=== PATIENT | female | born 1960 | race Caucasian/White ===

== ENCOUNTER 2016-08-16 09:14 | Day surgery (SDC) | payer OTHER ==
[2016-08-16] MEDS ORDERED: BACITRACIN IRRIGATION/NS 50,000 UNITS/1,000 ML BTL IRR ONE (09:22)
[2016-08-16] MEDS ORDERED: diphenhydrAMINE 25 MG CAP PO ONE (09:22)
[2016-08-16] MEDS ORDERED: DIAZEPAM 5 MG TAB PO ONE (09:22)
[2016-08-16] MEDS ORDERED: ceFAZolin 2 GM/DEXTROSE 100 ML IV ONE (09:22)
[2016-08-16] MEDS ORDERED: NS 1,000 ML IV ONE (09:22)
--- NOTE | 2016-08-16 09:38 | CPEKG ---
Heart Rate: 66 RR Interval: 909 P-R Interval: 148 QRSD Interval: 84 QT Interval: 396 QTC Interval: 415 P Hubbard: 70 QRS Hubbard: 54 T Wave Hubbard: 28 EKG Severity - BORDERLINE ECG - EKG Impression: SINUS RHYTHM EKG Impression: PROBABLE LEFT ATRIAL ABNORMALITY Electronically Signed By: Nicola Osullivan 17-Aug-2016 10:17:17
[2016-08-16 09:50] LABS: % IMMATURE GRANULYOCYTES 0.4 % (0.0-1.1); ABSOLUTE IMMATURE GRANULOCYTES 0.02 10^3/uL (0.00-0.10); ADD DIFF? NO; ADD MORPH? NO; ADD SCAN? NO; ATYPICAL LYMPHOCYTE FLAG 20 (0-99); FRAGMENT RBC FLAG 0 (0-99); HEMATOCRIT 39.2 % (38.0-47.0); HEMOGLOBIN 13.3 g/dL (12.6-16.3); LEFT SHIFT FLG 0 (0-99); LIPEMIA HEMOLYSIS FLAG 90 (0-99); MEAN CELL HEMOGLOBIN 31.4 pg (27.9-34.1); MEAN CELL HEMOGLOBIN CONCENTR. 33.9 g/dL (32.4-36.7); MEAN CELL VOLUME 92.5 fL (81.5-99.8); MEAN PLATELET VOLUME 10.9 fL (8.7-11.7); PLATELET CLUMPS FLAG 10 (0-99); PLATELET COUNT 198 10^3/uL (150-400); RED BLOOD CELL COUNT 4.24 10^6/uL (4.18-5.33); RED CELL DISTRIBUTION WIDTH 13.5 % (11.5-15.2)
[2016-08-16 09:59] LABS: INR 1.03 (0.83-1.16); PROTIME(PATIENT) 13.4 SEC (12.0-15.0)
[2016-08-16 10:17] LABS: ANION GAP 10 mEq/L (8-16); CALCIUM 9.3 mg/dL (8.5-10.4); CARBON DIOXIDE 23 mEq/l (22-31); CHLORIDE 105 mEq/L (97-110); CREATININE 0.7 mg/dL (0.6-1.0); GLOMERULAR FILTRATION RATE > 60; GLUCOSE 101 mg/dL (70-100); SODIUM 138 mEq/L (134-144)
[2016-08-16] MEDS ORDERED: LIDOCAINE 1% 30 ML SDV ONE (10:42)
[2016-08-16] MEDS ORDERED: fentaNYL 100 MCG/2 ML INJ ONE (10:43)
[2016-08-16] MEDS ORDERED: MIDAZOLAM 2 MG/2 ML VIAL ONE (10:43)
[2016-08-16] MEDS ORDERED: BUPIVACAINE 0.5% 30 ML SDV ONE (10:43)
[2016-08-16] MEDS ORDERED: ATROPINE SULFATE 1 MG/10 ML SYR ONE (11:17)
--- NOTE | 2016-08-16 11:51 | EPPROC ---
Electrophysiology Procedure Note: PROCEDURE PERFORMED: 1. AV Pacemaker generator change INDICATION: Pacemaker generator at [place] Bradycardia PROCEDURE NOTE: Patient presented to the cardiac catheterization laboratory in a fasting, postabsorptive state. EP RN administered sedation. The left infraclavicular area was prepped and draped in the usual sterile fashion. Lidocaine plus bupivacaine was used for local anesthesia. Using a combination of blunt and sharp dissection and electrocautery, the dissection was carried down to the prepectoral fascia and the existing pacemaker pocket was opened. The pacemaker generator was disconnected from the leads and the lead thresholds and impedance were checked. The pacemaker pocket was copiously irrigated with antibiotic solution. The pocket was again inspected for any bleeding. The leads were attached to the pacemaker securely. The pacemaker was inserted into the pocket. During the procedure the patient had a vasovagal response with drop in HR ( ventricular pacing) and SBP to 58 mmHg. Patient awake, alert but felt funny like her usual vasovagal episodes. SBP improved with 300 mL fluid bolus and 0.5 mg of atropine IV. The pacemaker pocket was closed in 3 layers with absorbable monocryl sutures and padma. Appropriate dressing was applied. The patient left the cardiac catheterization laboratory in stable condition. Serial Numbers: 1. Device [employer]onic Adapta [id number] 2. Atrial Lead [facility] 438-10 [id number] 3. Ventricular Lead [employer]onic 4092-52 [id number] Stimulation Thresholds & Impedance Measurements: 1. Atrial Lead P 2.8 291 ohm 0.75V 0.4 ms 2. Ventricular Lead R 8 mV 761 ohm 1.25 V 0.4 ms Ronni Pacing Parameters 1. Pacing mode DDD 2. Lower rate 40 ppm 3. Upper tracking rate 140 bpm Rate drop response on Patient Problems: Problems Problem Status Onset Bradycardia Acute
== END 2016-08-16 15:02 | disposition home or self-care (01) ==
LOC: FCATH 09:14
PROVIDERS: ATTEND Internal Medicine Cardiovascular Disease
DX: Z45.018 Encounter for adjustment and management of other part of cardiac pacemaker (principal); R00.1 Bradycardia, unspecified
CPT/HCPCS: C1785; J0461; J0690; J1200; J2250; J3010

== ENCOUNTER → 2017-02-27 | Outpatient (CLI) | payer OTHER | LOC: FIMAGING 09:23 | PROVIDERS: ATTEND Family Medicine | DX: Z12.31 Encounter for screening mammogram for malignant neoplasm of breast (principal) | CPT/HCPCS: G0202 ==

== ENCOUNTER → 2018-04-11 | Outpatient (CLI) | payer OTHER | LOC: FIMAGING 10:55 | PROVIDERS: ATTEND Family Medicine | DX: Z12.31 Encounter for screening mammogram for malignant neoplasm of breast (principal) ==

== ENCOUNTER 2018-05-04 09:01 | Emergency (ER) | payer OTHER ==
[2018-05-04] MEDS ORDERED: NS 1,000 ML IV ONE ×2 (09:23→10:41)
--- NOTE | 2018-05-04 09:27 | EDPHY ---
H & P Time Seen by Provider: 05/04/18 09:09 HPI/ROS: CHIEF COMPLAINT: Abdominal pain, vomiting HISTORY OF PRESENT ILLNESS: Patient is a 57-year-old female who presents emergency department with indigestion for the past 3 days. Last night she began to develop abdominal discomfort. This is bilateral upper abdominal pain that is mild to moderate. This morning she had an episode of nonbloody emesis. She has had no diarrhea. No fevers or chills. Patient has had no cough or shortness of breath. She describes diffuse body aches. Patient has a history of pacemaker placement after a cardiac arrest. This was secondary to a conduction issue and not cardiac disease. REVIEW OF SYSTEMS: 10 systems were reveiwed and are negative with the exception of the elements mentioned in the history of present illness. Past Medical/Surgical History: Includes cardiac arrest Past surgical history: Includes pacemaker placement, Social history: Patient does not smoke Smoking Status: Never smoked Physical Exam: Vitals noted. 37 GENERAL: Well-appearing, in no acute distress, alert. HEENT: Eyes normal to inspection, normal pharynx, no signs of dehydration. NECK: Normal, supple. RESPIRATORY: Clear to auscultation bilaterally, no rales, rhonchi or wheezing. CVS: Regular rate and rhythm, no rubs, murmurs, or gallops. ABDOMEN: Soft, mild right upper quadrant and mild left upper quadrant tenderness to palpation with no rebound or guarding, nondistended, no organomegaly. BACK: Normal to inspection, no CVA tenderness. SKIN: Normal color, no rash, warm, dry. No pallor. EXTREMITIES: No pedal edema, no calf tenderness, no Homans sign or cords, no joint swelling. NEURO/PSYCH: Alert and oriented, normal mood and affect, normal motor sensory exam. Constitutional: Initial Vital Signs Temperature (C) 37 C 05/04/18 09:04 Heart Rate 89 05/04/18 09:04 Respiratory Rate 18 05/04/18 09:04 Blood Pressure 123/74 H 05/04/18 09:04 O2 Sat (%) 96 05/04/18 09:04 O2 Delivery Mode Room Air Allergies/Adverse Reactions: No Known Allergies Allergy (Unverified 08/16/16 09:22) Home Medications: Medication Instructions Recorded Multi-Vitamin Daily 1 PO 04/19/17 Vitamin B-12 1 PO DAILY 08/16/16 Ondansetron Odt [Zofran Odt 4 mg 4 mg PO Q4PRN PRN #7 tab 05/04/18 (*)] Medical Decision Making - Diagnostics Imaging Results: Imaging Impressions Abdomen CT 05/04/18 10:40 Impression: Features consistent with gastroenteritis. Findings were discussed with ARIADNA LENZ MD at 11:30, on 05/04/2018. ED Course/Re-evaluation: In the emergency department I discussed possible etiologies with the patient. I answered all her questions. An IV was placed. Patient given normal saline 1 L IV for hydration. She was given Zofran 4 mg IV for nausea. She is given Toradol 15 mg IV for discomfort. The CBC and chemistry unremarkable. Influenza negative. I rechecked the patient. She states she feels"terrible."She still has abdominal cramping. Patient was given a 2nd L of normal saline. CT of the abdomen pelvis was ordered. 11 30: Please refer the dictated report by Dr. Donaldson. No acute disease noted. Findings consistent with gastroenteritis. I discussed the results with the patient. I answered all her questions. Patient was given Toradol 30 mg IV, Zofran 4 mg IV and fentanyl 50 mcg IV for her symptoms. 12 30: I rechecked the patient. She was feeling better. Her abdomen was soft , nontender nondistended. Patient was given warnings prior to leaving. She will return with worsening symptoms. Differential Diagnosis: My differential includes but is not limited to viral illness, pancreatitis, cholecystitis, peptic ulcer disease, small-bowel obstruction, perforation, pneumonia, bronchitis, influenza - Data Points Laboratory Results: Laboratory Results 05/04/18 09:35 05/04/18 09:35 05/04/18 05/04/18 05/04/18 09:35 09:35 09:30 WBC 8.93 10^3/uL 10^3/uL (3.80-9.50) RBC 4.62 10^6/uL 10^6/uL (4.18-5.33) Hgb 14.3 g/dL g/dL (12.6-16.3) Hct 42.7 % % (38.0-47.0) MCV 92.4 fL fL (81.5-99.8) MCH 31.0 pg pg (27.9-34.1) MCHC 33.5 g/dL g/dL (32.4-36.7) RDW 13.2 % % (11.5-15.2) Plt Count 211 10^3/uL 10^3/uL (150-400) MPV 11.2 fL fL (8.7-11.7) Neut % (Auto) 95.6 % H % (39.3-74.2) Lymph % (Auto) 1.8 % L % (15.0-45.0) [place] % (Auto) 2.2 % L % (4.5-13.0) Eos % (Auto) 0.2 % L % (0.6-7.6) Baso % (Auto) 0.1 % L % (0.3-1.7) Nucleat RBC Rel Count 0.0 % % (0.0-0.2) Absolute Neuts (auto) 8.53 10^3/uL H 10^3/uL (1.70-6.50) Absolute Lymphs (auto) 0.16 10^3/uL L 10^3/uL (1.00-3.00) Absolute Monos (auto) 0.20 10^3/uL L 10^3/uL (0.30-0.80) Absolute Eos (auto) 0.02 10^3/uL L 10^3/uL (0.03-0.40) Absolute Basos (auto) 0.01 10^3/uL L 10^3/uL (0.02-0.10) Absolute Nucleated RBC 0.00 10^3/uL 10^3/uL (0-0.01) Immature Gran % 0.1 % % (0.0-1.1) Seg Neutrophils % 95.0 % % Band Neutrophils % 0.0 % % Lymphocytes % 2.0 % % Monocytes % 3.0 % % Eosinophils % 0.0 % % Basophils % 0.0 % % Metamyelocytes % 0.0 % % Myelocytes % 0.0 % % Promyelocytes % 0.0 % % Blast Cells % 0.0 % % Immature Gran # 0.01 10^3/uL 10^3/uL (0.00-0.10) Absolute Seg Neuts 8.48 10^3/uL H 10^3/uL (1.70-6.50) Absolute Band Neuts 0.00 10^3/uL 10^3/uL (0.00-0.70) Absolute Lymphocytes 0.18 10^3/uL L 10^3/uL (1.00-3.00) Absolute Monocytes 0.27 10^3/uL L 10^3/uL (0.30-0.80) Absolute Eosinophils 0.00 10^3/uL L 10^3/uL (0.03-0.40) Absolute Basophils 0.00 10^3/uL L 10^3/uL (0.02-0.10) Absolute Metamyelocyte 0.00 10^3/mL 10^3/mL (0.00-0.00) Absolute Myelocytes 0.00 10^3/mL 10^3/mL (0.00-0.00) Absolute Promyelocytes 0.00 10^3/uL 10^3/uL (0.00-0.00) Absolute Plasma Cells 0.00 10^3/uL 10^3/uL (0.00-0.00) Nucleated RBCs 0 /100 WBC /100 WBC (0-0) Absolute Blast Cells 0.00 10^3/uL 10^3/uL (0.00-0.00) Plasma Cells % 0.0 % % Platelet Estimate ADEQUATE (ADEQ) Sodium 137 mEq/L mEq/L (135-145) Potassium 4.2 mEq/L mEq/L (3.5-5.2) Chloride 106 mEq/L mEq/L (97-110) Carbon Dioxide 24 mEq/l mEq/l (22-31) Anion Gap 7 mEq/L mEq/L (6-14) BUN 11 mg/dL mg/dL (7-23) Creatinine 0.8 mg/dL mg/dL (0.6-1.0) Estimated GFR > 60 Glucose 113 mg/dL H mg/dL (70-100) Calcium 9.7 mg/dL mg/dL (8.5-10.4) Total Bilirubin 1.0 mg/dL mg/dL (0.1-1.4) Conjugated Bilirubin 0.3 mg/dL mg/dL (0.0-0.5) Unconjugated Bilirubin 0.7 mg/dL mg/dL (0.0-1.1) AST 29 IU/L IU/L (14-46) ALT 22 IU/L IU/L (9-52) Alkaline Phosphatase 78 IU/L IU/L (38-126) Total Protein 7.7 g/dL g/dL (6.3-8.2) Albumin 4.5 g/dL g/dL (3.5-5.0) Lipase 74 IU/L IU/L (23-300) Nasal Influenza A PCR NEGATIVE FOR FLU A (NEGATIVE) Nasal Influenza B PCR NEGATIVE FOR FLU B (NEGATIVE) Medications Given: Discontinued Medications Fentanyl (Sublimaze) 50 mcg IVP EDNOW ONE Stop: 05/04/18 11:30 Last Admin: 05/04/18 11:37 Dose: 50 mcg Sodium Chloride (Ns) 1,000 mls @ 0 mls/hr IV EDNOW ONE; Wide Open PRN Reason: Protocol Stop: 05/04/18 09:24 Last Admin: 05/04/18 10:27 Dose: 1,000 mls Sodium Chloride (Ns) 1,000 mls @ 0 mls/hr IV ONCE ONE; Wide Open PRN Reason: Protocol Stop: 05/04/18 10:42 Last Admin: 05/04/18 11:37 Dose: 1,000 mls Ketorolac Tromethamine (Toradol) 30 mg IVP EDNOW ONE Stop: 05/04/18 11:30 Last Admin: 05/04/18 11:37 Dose: 30 mg Ondansetron HCl (Zofran) 4 mg IVP EDNOW ONE Stop: 05/04/18 11:30 Last Admin: 05/04/18 11:37 Dose: 4 mg Departure - Departure Disposition: Home, Routine, Self-Care Clinical Impression: Abdominal pain Qualifiers: Abdominal location: upper abdomen, unspecified Qualified Code(s): R10.10 - Upper abdominal pain, unspecified Vomiting Qualifiers: Vomiting type: vomiting of fecal matter Nausea presence: with nausea Qualified Code(s): R11.13 - Vomiting of fecal matter Condition: Good Instructions: Acute Abdominal Pain (ED) Additional Instructions: Return with increasing pain, fever, repeated vomiting or any other concerns. Referrals: Risa Bourgeois MD [Primary Care Provider] - 3-4 days, if not improved Prescriptions: Ondansetron Odt [Zofran Odt 4 mg (*)] 4 mg PO Q4PRN PRN #7 tab PRN Reason: For Nausea & Vomiting
[2018-05-04 09:52] LABS: PLATELET COUNT 211 10^3/uL (150-400)
[2018-05-04] MEDS ORDERED: IOPAMIDOL (ISOVUE-300) 100 ML BTL ONE (10:43)
[2018-05-04] MEDS ORDERED: ONDANSETRON 4 MG/2 ML VIAL IVP ONE (11:29)
[2018-05-04] MEDS ORDERED: KETOROLAC 30 MG/1 ML SDV IVP ONE (11:29)
[2018-05-04] MEDS ORDERED: fentaNYL 100 MCG/2 ML INJ IVP ONE (11:29)
[2018-05-04 13:11] VITALS: BP 131/84
== END 2018-05-04 13:11 | disposition home or self-care (01) ==
DX: R10.10 Upper abdominal pain, unspecified (principal); R11.13 Vomiting of fecal matter; E86.9 Volume depletion, unspecified
CPT/HCPCS: 96374; J1885; J2405; J3010; Q9967